=== PATIENT | female | born 1995 | race Caucasian/White ===

== ENCOUNTER 2016-12-08 12:59 | Emergency (ER) | payer OTHER ==
--- NOTE | 2016-12-08 15:28 | EDPHY ---
H & P Time Seen by Provider: 12/08/16 15:11 HPI/ROS: CHIEF COMPLAINT: Abdominal pain HISTORY OF PRESENT ILLNESS: 21-year-old female presents to the emergency department by private vehicle complaining of worsening abdominal pain. The patient states over 1 week ago she developed abdominal pain. She was seen at [facility] at [facility] and was diagnosed with PID. She was treated with IM ceftriaxone, oral doxycycline, oral Flagyl, and fluconazole. She has been taking the medications as prescribed. She continues to have ongoing abdominal pain. She has dyspareunia. She states that she has never had PID in the past. Her partner is asymptomatic. She has had IUD since August of 2016. No fevers or chills. Patient states that her cultures that were obtained at the [facility] were negative and she did not have a sexually transmitted infection. The patient is requesting pelvic ultrasound. She denies chest pain or difficulty breathing. No vomiting. REVIEW OF SYSTEMS: Constitutional: No fever, no chills. Eyes: No double or blurry vision. ENT: No sore throat. Respiratory: No cough, no shortness of breath. Cardiac: No chest pain. Gastrointestinal: Abdominal pain as above. No vomiting or diarrhea. Genitourinary: No vaginal discharge. No dysuria. Musculoskeletal: No neck or back pain. Skin: No rashes. Neurological: No headache. Past Medical/Surgical History: IUD Social History: Recent [facility] graduate Smoking Status: Never smoked Physical Exam: General Appearance: Alert, no distress. Afebrile and nontoxic-appearing. Eyes: Pupils equal and round. Extraocular motions are all intact. ENT: Mouth: Mucous membranes moist. Respiratory: No wheezing, rhonchi, or rales, lungs are clear to auscultation. Cardiovascular: Regular rate and rhythm. Gastrointestinal: Abdomen is soft. Tenderness with palpation suprapubic area as well as in the right and left lower quadrant. There is no rebound, guarding or masses noted. No CVA tenderness bilaterally. Genitourinary: Deferred Neurological: Alert and oriented x 3, cranial nerves II through XII grossly intact Skin: Warm and dry, no rashes. Musculoskeletal: Nontender to palpate along the cervical, thoracic or lumbar spine. Neck is supple. Extremities: Full range of motion and no peripheral edema. Psychiatric: Patient is oriented X 3, there is no agitation. Constitutional: Initial Vital Signs Temperature (C) 36.6 C 12/08/16 13:05 Heart Rate 82 12/08/16 13:05 Respiratory Rate 18 12/08/16 13:05 Blood Pressure 102/68 12/08/16 13:05 O2 Sat (%) 97 12/08/16 13:05 O2 Delivery Mode Room Air Allergies/Adverse Reactions: Penicillins Allergy (Mild, Verified 12/08/16 13:07) Rash Home Medications: Medication Instructions Recorded ALPRAZolam [Xanax] 07/12/13 Doxycycline Hyclate [Vibramycin 100 mg PO BID 12/08/16 100 MG (*)] Iud 12/08/16 metroNIDAZOLE [Flagyl 500 mg (*)] 500 mg PO BID 12/08/16 Medical Decision Making - Diagnostics Imaging Results: Imaging Impressions Pelvic/Renal Ultrasound 12/08/16 15:23 Impression: Normal ultrasound pelvis. IUD in good place. Findings and recommendations discussed with CRISTY BEATTY at 1626 hour, 2016. Final report concurs with initial preliminary interpretation. Imaging: Discussed imaging studies w/ call center recruiter Radiologist ED Course/Re-evaluation: 21-year-old female presents to the emergency department with abdominal pain. The patient is requesting pelvic ultrasound. The patient states that her cultures obtained at [facility] were negative. She has been taking antibiotics as prescribed. Patient is afebrile. She is nontoxic-appearing. Pelvic ultrasound has been ordered. Awaiting urinalysis. Pelvic ultrasound was unremarkable. IUD in normal placement. This was reported to me by Dr. Eckert at 4:25 p.m.. Urinalysis reveals no signs of infection. Patient was encouraged to continue antibiotics as prescribed. She was also given OBGYN referral. She was also encouraged to avoid intercourse until after follow-up with OBGYN in her symptoms have completely resolved. Differential Diagnosis: Including but not limited to pelvic inflammatory disease, sexually transmitted infection, urinary tract infection, pyelonephritis, IUD displacement, ovarian cyst, ovarian torsion - Data Points Laboratory Results: 12/08/16 15:33 Urine Color PALE YELLOW Urine Appearance CLEAR Urine pH 5.0 (5.0-7.5) Ur Specific [place] 1.008 (1.002-1.030) Urine Protein NEGATIVE (NEGATIVE) Urine Ketones NEGATIVE (NEGATIVE) Urine Blood 1+ H (NEGATIVE) Urine Nitrate NEGATIVE (NEGATIVE) Urine Bilirubin NEGATIVE (NEGATIVE) Urine Urobilinogen NEGATIVE EU EU (0.2-1.0) Ur Leukocyte Esterase NEGATIVE (NEGATIVE) Urine RBC 1-3 /hpf /hpf (0-3) Urine WBC NONE SEEN /hpf /hpf (0-3) Ur Epithelial Cells NONE SEEN /lpf /lpf (NONE-1+) Urine Mucus TRACE /lpf /lpf (NONE-1+) Urine Glucose NEGATIVE (NEGATIVE) Departure - Departure Disposition: Home, Routine, Self-Care Clinical Impression: History of PID Abdominal pain Qualifiers: Abdominal location: lower abdomen, unspecified Qualified Code(s): R10.30 - Lower abdominal pain, unspecified Condition: Good Instructions: Pelvic Inflammatory Disease (ED), Acute Abdominal Pain (ED) Additional Instructions: Continue antibiotics as prescribed. Follow up with OBGYN as discussed. Return to the emergency department if you developed fever, vomiting, increasing pain, or if you feel worse in any way. Pelvic rest as discussed. Referrals: Sana Plata DO [Doctor of Osteopathy] - 2-3 days, call for appt. (OBGYN on- call)
[2016-12-08 15:52] LABS: COLOR PALE YELLOW; LEUKOCYTE ESTERASE,URINE NEGATIVE (NEGATIVE); NITRITE,URINE NEGATIVE (NEGATIVE)
[2016-12-08 15:53] LABS: MUCUS TRACE /lpf (NONE-1+)
[2016-12-08 15:56] LABS: WBC,URINE NONE SEEN /hpf (0-3)
[2016-12-08 16:41] VITALS: BP 120/74; PULSE 80; RESP 14; TEMP 98.4; O2SAT 94
== END 2016-12-08 16:40 | disposition home or self-care (01) ==
DX: R10.30 Lower abdominal pain, unspecified (principal); Z87.42 Personal history of other diseases of the female genital tract